=== PATIENT | female | born 1980 | race Caucasian/White ===

== ENCOUNTER 2018-07-14 03:16 | Inpatient (IN) | payer BC ==
[~2018-07-14] VITALS: Ht 170.2 cm; Wt 90.0 kg
[2018-07-14 03:47] VITALS: BP 130/67
[2018-07-14] MEDS ORDERED: D5%-LACTATED RINGERS 1,000 ML IV SCH (04:48)
[2018-07-14] MEDS ORDERED: OXYTOCIN 30U/ 0.9% NaCL 500ML 500 ML IV ONE (04:48)
[2018-07-14] MEDS ORDERED: MISOPROSTOL 200 MCG TABLET ONE (04:52)
[2018-07-14] MEDS ORDERED: OXYTOCIN 30U/ 0.9% NaCL 500ML 500 ML ONE ×2 (04:52→16:07)
[2018-07-14] MEDS ORDERED: LIDOCAINE 1%, 50ML ONE (04:52)
[2018-07-14] MEDS ORDERED: NEWBORN KIT ONE (04:52)
[2018-07-14] MEDS ORDERED: LORA10TA75 PO (04:58)
[2018-07-14] MEDS ORDERED: TERBUTALINE 1 MG/ML, 1ML IVPush PRN (05:00)
[2018-07-14] MEDS ORDERED: ONDANSETRON 2MG/ML, 2ML IVPush PRN (05:00)
[2018-07-14] MEDS ORDERED: FENTANYL PF 100 MCG/2ML IVPush PRN (05:00)
[2018-07-14] MEDS ORDERED: CALCIUM CARBONATE 500 MG TAB.CHEW PO PRN (05:00)
[2018-07-14] MEDS ORDERED: ALUMINUM/MAG/SIMETHICONE 30 ML UDC PO PRN (05:00)
[2018-07-14] MEDS ORDERED: FENTANYL PF 100 MCG/2ML IV PRN (05:00)
[2018-07-14] MEDS ORDERED: FENTANYL PF 100 MCG/2ML ONE (05:10)
[2018-07-14] MEDS: LACTATED RINGERS 1,000 ML IV SCH ×3 (05:16→12:44)
[2018-07-14 05:28] LABS: BASOPHILS # (AUTO) 0.04 x10^3/uL (0-0.1); BASOPHILS % (AUTO) 0 % (0-1); EOSINOPHILS # (AUTO) 0.08 x10^3/uL (0-0.4); EOSINOPHILS % (AUTO) 1 % (1-7); LYMPHOCYTES # (AUTO) 1.66 x10^3/uL (1-3.4); LYMPHOCYTES % (AUTO) 15 % (22-44); MD NO; MEAN CORPUSCULAR HEMOGLOBIN 30.5 pg (27.0-34.8); MEAN CORPUSCULAR HGB CONC 34.8 g/dL (32.4-35.8); MEAN CORPUSCULAR VOLUME 87.6 fL (80-100); MEAN PLATELET VOLUME 8.4 fL (7.4-10.4); MONOCYTES # (AUTO) 0.69 x10^3/uL (0.2-0.8); MONOCYTES % (AUTO) 6 % (2-9); NEUTROPHILS # (AUTO) 8.79 x10^3/uL (1.8-6.8); NEUTROPHILS % (AUTO) 78 % (42-75); PLATELET COUNT 195 x10^3/uL (130-400); RED BLOOD COUNT 3.56 x10^6/uL (3.82-5.3); RED CELL DISTRIBUTION WIDTH 13.6 % (9.6-15.2)
[2018-07-14] MEDS ORDERED: FENTANYL/BUPIV./NS/PF 250 ML EPIDCONT SCH (05:40)
[2018-07-14] MEDS ORDERED: FENTANYL PF 500 MCG, BUPIVACAINE/PF 0.5%, 30ML 62.5 ML in SODIUM CHLORIDE 0.9% 177.5 ML EPIDCONT SCH (06:00)
[2018-07-14] MEDS ORDERED: OXYTOCIN 30U/ 0.9% NaCL 500ML 500 ML IV PRN ×2 (09:04)
[2018-07-14] MEDS ORDERED: METOCLOPRAMIDE 5 MG/ML, 2ML ONE (14:21)
[2018-07-14] MEDS ORDERED: METOCLOPRAMIDE 5 MG/ML, 2ML IVPush ONE (14:30)
[2018-07-14] MEDS: OXYTOCIN 30U/ 0.9% NaCL 500ML 500 ML IV SCH (17:19)
[2018-07-14] MEDS ORDERED: LACTATED RINGERS 1,000 ML IV SCH ×2 (17:19)
[2018-07-14] MEDS ORDERED: OXYTOCIN 30U/ 0.9% NaCL 500ML 500 ML IV SCH (17:19)
[2018-07-14] MEDS ORDERED: CARBOPROST TROMETHAMINE 250 MCG/ML, 1ML IM PRN (17:30)
[2018-07-14] MEDS ORDERED: SIMETHICONE 80 MG CHEW TAB PO PRN (17:30)
[2018-07-14] MEDS ORDERED: OXYcodone/APAP 5/325MG TABLET PO PRN ×3 (17:30)
[2018-07-14] MEDS ORDERED: MISOPROSTOL 200 MCG TABLET PR PRN ×2 (17:30)
[2018-07-14] MEDS ORDERED: MEASLES,MUMPS&RUBELLA VACC/PF 0.5 ML SQ-VACC PRN (17:30)
[2018-07-14] MEDS ORDERED: ACETAMINOPHEN 325 MG TABLET PO PRN ×3 (17:30)
[2018-07-14] MEDS ORDERED: morphine SULFATE 10 MG/ML, 1ML IVPush PRN (17:30)
[2018-07-14] MEDS ORDERED: MEASLES,MUMPS&RUBELLA VACC/PF 0.5 ML SQ PRN (17:30)
[2018-07-14] MEDS ORDERED: DOCUSATE 100 MG CAPSULE PO PRN (17:30)
[2018-07-14] MEDS ORDERED: RHOGAM FROM BLOOD BANK 1 NOTE EA IM/IV ONE (17:30)
[2018-07-14] MEDS ORDERED: DIPH,PERTUSS(ACELL),TET VAC/PF NC IM-VACC PRN ×2 (17:30)
[2018-07-14] MEDS ORDERED: KETOROLAC 30 MG/1 ML IV SCH (17:30)
[2018-07-14] MEDS ORDERED: METHYLERGONOVINE 0.2 MG/ML IM PRN ×2 (17:30)
[2018-07-14] MEDS ORDERED: IBUPROFEN 600 MG TABLET ONE (18:38)
[2018-07-14] MEDS ORDERED: OXYcodone/APAP 5/325MG TABLET ONE (18:39)
[2018-07-14] MEDS: IBUPROFEN 600 MG TABLET PO PRN (18:42)
[2018-07-14 19:25] VITALS: BP 104/68
[2018-07-15] MEDS: IBUPROFEN 600 MG TABLET PO PRN ×4 (00:44→23:14)
[2018-07-15] MEDS: DOCUSATE 100 MG CAPSULE PO PRN ×3 (00:44→23:14)
[2018-07-15 00:45] VITALS: BP 120/68
[2018-07-15 01:16] LABS: BASOPHILS # (AUTO) 0.01 x10^3/uL (0-0.1); BASOPHILS % (AUTO) 0 % (0-1); EOSINOPHILS % (AUTO) 0 % (1-7); LYMPHOCYTES # (AUTO) 1.07 x10^3/uL (1-3.4); LYMPHOCYTES % (AUTO) 8 % (22-44); MD NO; MEAN CORPUSCULAR HEMOGLOBIN 29.4 pg (27.0-34.8); MEAN CORPUSCULAR HGB CONC 33.7 g/dL (32.4-35.8); MEAN CORPUSCULAR VOLUME 87.3 fL (80-100); MEAN PLATELET VOLUME 8.6 fL (7.4-10.4); MONOCYTES # (AUTO) 0.89 x10^3/uL (0.2-0.8); MONOCYTES % (AUTO) 7 % (2-9); NEUTROPHILS # (AUTO) 11.63 x10^3/uL (1.8-6.8); NEUTROPHILS % (AUTO) 86 % (42-75); PLATELET COUNT 196 x10^3/uL (130-400); RED BLOOD COUNT 3.25 x10^6/uL (3.82-5.3); RED CELL DISTRIBUTION WIDTH 13.6 % (9.6-15.2)
[2018-07-15] MEDS: OXYTOCIN 30U/ 0.9% NaCL 500ML 500 ML IV SCH (03:19)
[2018-07-15 04:15] VITALS: BP 104/76
[2018-07-15 07:45] VITALS: BP 96/60
[2018-07-15] MEDS ORDERED: PRENATAL VIT/IRON/FA 1 EACH TABLET PO SCH (09:00)
[2018-07-15] MEDS: PRENATAL VIT/IRON/FA 1 EACH TABLET PO SCH (10:02)
[2018-07-15 12:30] VITALS: BP 107/69
[2018-07-15 20:00] VITALS: BP 109/69
[2018-07-15] MEDS: OXYcodone/APAP 5/325MG TABLET PO PRN (23:33)
[2018-07-16 07:50] VITALS: BP 114/77
[2018-07-16] MEDS ORDERED: OXYC-302 PO (08:17)
[2018-07-16] MEDS ORDERED: IBUP-1222 PO (08:18)
[2018-07-16] MEDS: PRENATAL VIT/IRON/FA 1 EACH TABLET PO SCH (09:14)
[2018-07-16] MEDS: OXYcodone/APAP 5/325MG TABLET PO PRN (09:14)
[2018-07-16] MEDS: IBUPROFEN 600 MG TABLET PO PRN (12:03)
== END 2018-07-16 12:03 | disposition home or self-care (01) | DRG 775 ==
LOC: LDOP 03:16 → LDIP 04:48 → 2NW 19:24
PROVIDERS: ADMIT Obstetrics & Gynecology Gynecology; ATTEND Obstetrics & Gynecology
PROC: 10E0XZZ Delivery of Products of Conception, External Approach (ICD-10-PCS; principal; 2018-07-14)
PROC: 0HQ9XZZ Repair Perineum Skin, External Approach (ICD-10-PCS; 2018-07-14)
PROC: 10907ZC Drainage of Amniotic Fluid, Therapeutic from Products of Conception, Via Natural or Artificial Opening (ICD-10-PCS; 2018-07-14)
PROC: 3E0R3BZ Introduction of Anesthetic Agent into Spinal Canal, Percutaneous Approach (ICD-10-PCS; 2018-07-14)
PROC: 00HU33Z Insertion of Infusion Device into Spinal Canal, Percutaneous Approach (ICD-10-PCS; 2018-07-14)
DX: O24.420 Gestational diabetes mellitus in childbirth, diet controlled (principal); O70.0 First degree perineal laceration during delivery; Z37.0 Single live birth; Z3A.38 38 weeks gestation of pregnancy; O90.81 Anemia of the puerperium; D64.9 Anemia, unspecified
CPT/HCPCS: 36415; 82962; 85025; 86850; 86900; G0378; J2405; J3010; J3490; J2590; J2765; J7050; J7120

== ENCOUNTER 2018-07-18 20:10 | Inpatient (IN) | payer BC ==
[~2018-07-18] VITALS: Ht 170.2 cm; Wt 83.1 kg
[~2018-07-18 20:10] MED LIST: IBUP-1222 PO; LORA10TA75 PO; OXYC-302 PO
[2018-07-18] MEDS ORDERED: METOCLOPRAMIDE 5 MG/ML, 2ML ONE (21:03)
[2018-07-18 21:14] LABS: ALBUMIN 2.6 g/dL (3.4-5.0); ANION GAP 10 mmol/L (5-15); CALCIUM 8.8 mg/dL (8.5-10.1); CHLORIDE 107 mmol/L (98-107)
[2018-07-18 21:17] LABS: ALANINE AMINOTRANSFERASE 57 U/L (12-78); ALKALINE PHOSPHATASE 108 U/L (45-117); BILIRUBIN,TOTAL 0.2 mg/dL (0.2-1.0); CREATININE 0.71 mg/dL (0.55-1.02)
[2018-07-18] MEDS ORDERED: SODIUM CHLORIDE 0.9% 1,000ML IVBOLUS ONE (21:30)
[2018-07-18] MEDS ORDERED: METOCLOPRAMIDE 5 MG/ML, 2ML IVPush ONE (21:30)
[2018-07-18] MEDS ORDERED: DIPHENHYDRAMINE 50 MG/ML, 1ML IVPush ONE (21:30)
[2018-07-18 21:31] LABS: MD YES; MEAN CORPUSCULAR HEMOGLOBIN 30.2 pg (27.0-34.8); MEAN CORPUSCULAR HGB CONC 33.9 g/dL (32.4-35.8); MEAN CORPUSCULAR VOLUME 89.1 fL (80-100); PLATELET COUNT 258 x10^3/uL (130-400); RED BLOOD COUNT 3.75 x10^6/uL (3.82-5.3); RED CELL DISTRIBUTION WIDTH 13.6 % (9.6-15.2)
[2018-07-18 21:35] LABS: LYMPH#(MANUAL) 0.93 x10^3/uL (1-3.4); LYMPHS% (MANUAL) 10 % (22-44); MONOS#(MANUAL) 0.74 x10^3/uL (0.3-2.7); MONOS% (MANUAL) 8 % (2-9); SEG#(MANUAL) 7.63 x10^3/uL (1.8-6.8); SEGS% (MANUAL) 82 % (42-75)
[2018-07-18 21:37] LABS: <PLATELET ESTIMATE> ADEQUATE; <PLT MORPHOLOGY> NORMAL PLT MORPH; ANISOCYTOSIS 1+; POLYCHROMASIA 1+
[2018-07-18 21:57] LABS: CULTURE INDICATED? YES; MICROSCOPIC INDICATED
[2018-07-18] MEDS ORDERED: hydrALAzine 20 MG/ML, 1ML ONE (22:10)
[2018-07-18] MEDS ORDERED: niFEDipine ER 30 MG TABLET.ER PO ONE (22:13)
[2018-07-18] MEDS ORDERED: hydrALAzine 20 MG/ML, 1ML IV ONE (22:30)
[2018-07-18] MEDS ORDERED: DEXAMETHASONE 4 MG/ML, 1ML IVPush ONE (23:05)
[2018-07-18] MEDS ORDERED: DEXAMETHASONE 4 MG/ML, 1ML ONE (23:31)
[2018-07-18] MEDS ORDERED: SODIUM CHLORIDE 0.9% 1,000 ML IV SCH (23:43)
[2018-07-18] MEDS ORDERED: MORPHINE SULFATE 4 MG/ML, 1ML ONE (23:54)
[2018-07-18] MEDS ORDERED: ONDANSETRON ODT 4 MG ONE (23:55)
[2018-07-19] MEDS ORDERED: ONDANSETRON 2MG/ML, 2ML IVPush PRN
[2018-07-19] MEDS ORDERED: ONDANSETRON ODT 4 MG PO PRN
[2018-07-19] MEDS ORDERED: ACETAMINOPHEN 325 MG TABLET PO PRN
[2018-07-19] MEDS ORDERED: GADOBUTROL 10 MMOL/10 ML PFS ONE (00:04)
[2018-07-19] MEDS: morphine SULFATE 10 MG/ML, 1ML IVPush PRN ×4 (00:24→14:48)
[2018-07-19] MEDS ORDERED: niFEDipine ER 30 MG TABLET.ER PO ONE (00:30)
[2018-07-19 02:33] VITALS: BP 151/78
[2018-07-19 04:00] VITALS: BP 127/71
[2018-07-19] MEDS: BUTALB/APAP/CAFFEINE 50MG/325MG/40MG PO PRN (08:14)
[2018-07-19] MEDS ORDERED: PANTOPRAZOLE 40 MG IV IVPush SCH (10:00)
[2018-07-19] MEDS: DOCUSATE 100 MG CAPSULE PO SCH ×2 (10:03→21:24)
[2018-07-19] MEDS: DEXAMETHASONE 4 MG/ML, 1ML IVPush SCH ×3 (10:03→21:24)
[2018-07-19] MEDS ORDERED: MORPHINE SULFATE 4 MG/ML, 1ML ONE (10:42)
[2018-07-19 12:31] VITALS: BP 141/86
[2018-07-19 21:01] VITALS: BP 116/77
[2018-07-20] MEDS: BUTALB/APAP/CAFFEINE 50MG/325MG/40MG PO PRN (00:17)
[2018-07-20 01:03] VITALS: BP 157/88
[2018-07-20] MEDS: DEXAMETHASONE 4 MG/ML, 1ML IVPush SCH ×3 (03:32→15:30)
[2018-07-20] MEDS ORDERED: GADOBUTROL 10 MMOL/10 ML PFS ONE (07:50)
[2018-07-20] MEDS ORDERED: FUROSEMIDE 20 MG/2 ML ONE (08:31)
[2018-07-20] MEDS: DOCUSATE 100 MG CAPSULE PO SCH ×2 (08:58→19:53)
[2018-07-20 09:10] LABS: PLATELET (PFA) 324 x10^3/uL (130-400)
[2018-07-20 09:11] VITALS: BP 164/83
[2018-07-20 09:12] LABS: INTERNATIONAL NORMALIZED RATIO 0.94 (0.93-1.1); PARTIAL THROMBOPLASTIN TIME 22 Seconds (25-31); PROTHROMBIN TIME 9.8 Seconds (9.6-11.5)
[2018-07-20] MEDS ORDERED: LIDOCAINE-MPF 2% ,5ML ONE (09:32)
[2018-07-20] MEDS ORDERED: SUFentanil 50 MCG/ML, 1ML ONE (09:32)
[2018-07-20] MEDS ORDERED: MIDAZOLAM 1 MG/ML, 2ML ONE (09:32)
[2018-07-20] MEDS ORDERED: ROCURONIUM 10MG/ML,5ML ONE ×2 (09:33→11:20)
[2018-07-20] MEDS ORDERED: PROPOFOL 10 MG/ML, 20ML ONE (09:33)
[2018-07-20] MEDS ORDERED: SODIUM CHLORIDE 0.9% PF 10ML ONE (09:36)
[2018-07-20] MEDS ORDERED: DEXAMETHASONE 4 MG/ML, 1ML ONE ×3 (09:36)
[2018-07-20] MEDS ORDERED: CEFUROXIME 1.5 GM ONE (09:39)
[2018-07-20] MEDS: PANTOPRAZOLE 40 MG IV IVPush SCH (09:41)
[2018-07-20] MEDS ORDERED: NEOSPORIN OINT, 15GM ONE (09:46)
[2018-07-20] MEDS ORDERED: THROMBIN 20,000 UNIT VIAL TP ONE (09:46)
[2018-07-20] MEDS ORDERED: BACITRACIN 50,000 UNIT ONE (09:46)
[2018-07-20] MEDS ORDERED: BUPIVACAINE/PF-EPI 0.5% 1:200K ONE (09:46)
[2018-07-20] MEDS ORDERED: ONDANSETRON 2MG/ML, 2ML IV PRN ×2 (10:00→16:30)
[2018-07-20] MEDS ORDERED: HALOPERIDOL 5 MG/ML IV PRN (10:00)
[2018-07-20] MEDS ORDERED: OXYcodone 5 MG/5 ML ORAL.SOL UDC PO PRN (10:00)
[2018-07-20] MEDS ORDERED: hydrALAzine 20 MG/ML, 1ML IV PRN ×3 (10:00→18:00)
[2018-07-20] MEDS ORDERED: ACETAMINOPHEN 325 MG TABLET PO PRN ×3 (10:00→16:30)
[2018-07-20] MEDS ORDERED: LABETALOL 5MG/ML, 20ML IV PRN (10:00)
[2018-07-20] MEDS ORDERED: HYDROmorphone 1 MG/ML, 1ML IV PRN (10:00)
[2018-07-20] MEDS ORDERED: MEPERIDINE/PF 25MG/0.5ML IVPush PRN (10:00)
[2018-07-20] MEDS ORDERED: NEOSTIGMINE 1 MG/ML, 10ML ONE (10:28)
[2018-07-20] MEDS ORDERED: BUPIVACAINE/PF-EPI 0.5% 1:200K IM ONE (11:20)
[2018-07-20] MEDS ORDERED: LABETALOL 5MG/ML, 20ML ONE (11:36)
[2018-07-20] MEDS ORDERED: ONDANSETRON 2MG/ML, 2ML ONE ×2 (12:56)
[2018-07-20] MEDS ORDERED: GLYCOPYRROLATE 0.4 MG/2 ML, 2ML ONE (14:05)
[2018-07-20] MEDS ORDERED: FENTANYL PF 100 MCG/2ML ONE ×2 (14:15→14:38)
[2018-07-20] MEDS ORDERED: OXYcodone 5 MG/5 ML ORAL.SOL UDC ONE (14:39)
[2018-07-20] MEDS: FENTANYL PF 100 MCG/2ML IV PRN ×3 (14:42→15:05)
[2018-07-20] MEDS ORDERED: NS + 20MEQ KCL 1,000 ML IV SCH (16:30)
[2018-07-20] MEDS ORDERED: VANCOMYCIN PER PHARMACY MC SCH (16:30)
[2018-07-20] MEDS ORDERED: MAGNESIUM HYDROXIDE 8%, 30ML UDC PO PRN (16:30)
[2018-07-20] MEDS ORDERED: ACETAMINOPHEN 650 MG SUPP PR PRN ×2 (16:30)
[2018-07-20] MEDS ORDERED: LABETALOL 250 MG in DEXTROSE 5% 200 ML IV PRN (16:30)
[2018-07-20] MEDS ORDERED: BISACODYL 10 MG SUPP PR PRN (16:30)
[2018-07-20] MEDS ORDERED: DEXAMETHASONE 4 MG TABLET PO SCH (16:30)
[2018-07-20] MEDS: HYDROmorphone 2 MG/ML, 1ML IV PRN ×2 (16:32→19:52)
[2018-07-20] MEDS: DEXAMETHASONE 4 MG/ML, 1ML IV SCH ×2 (16:45→22:36)
[2018-07-20] MEDS ORDERED: PHARMACOKINETIC CONSULTATION MC ONE (17:00)
[2018-07-20] MEDS ORDERED: PHARMACOKINETIC MONITORING MC PRN (17:00)
[2018-07-20] MEDS: OXYcodone/APAP 5/325MG TABLET PO PRN ×2 (17:56→22:31)
[2018-07-21] MEDS: VANCOMYCIN 1,400 MG in SODIUM CHLORIDE 0.9% 250 ML IV SCH ×2 (00:36→13:51)
[2018-07-21] MEDS: OXYcodone/APAP 5/325MG TABLET PO PRN ×5 (03:09→23:52)
[2018-07-21] MEDS: DEXAMETHASONE 4 MG/ML, 1ML IV SCH ×2 (04:44→19:55)
[2018-07-21 05:08] LABS: ALANINE AMINOTRANSFERASE 30 U/L (12-78); ALBUMIN 2.3 g/dL (3.4-5.0); ANION GAP 11 mmol/L (5-15); CALCIUM 7.7 mg/dL (8.5-10.1); CHLORIDE 109 mmol/L (98-107); CREATININE 0.56 mg/dL (0.55-1.02)
[2018-07-21 05:10] LABS: ALKALINE PHOSPHATASE 79 U/L (45-117); BILIRUBIN,TOTAL 0.2 mg/dL (0.2-1.0); TOTAL PROTEIN 5.7 g/dL (6.4-8.2)
[2018-07-21 05:33] LABS: BASOPHILS # (AUTO) 0.01 x10^3/uL (0-0.1); BASOPHILS % (AUTO) 0 % (0-1); EOSINOPHILS # (AUTO) 0.02 x10^3/uL (0-0.4); EOSINOPHILS % (AUTO) 0 % (1-7); LYMPHOCYTES # (AUTO) 1.71 x10^3/uL (1-3.4); LYMPHOCYTES % (AUTO) 15 % (22-44); MD NO; MEAN CORPUSCULAR HEMOGLOBIN 29.1 pg (27.0-34.8); MEAN CORPUSCULAR HGB CONC 33.1 g/dL (32.4-35.8); MEAN CORPUSCULAR VOLUME 88.1 fL (80-100); MEAN PLATELET VOLUME 7.5 fL (7.4-10.4); MONOCYTES % (AUTO) 6 % (2-9); NEUTROPHILS % (AUTO) 79 % (42-75); PLATELET COUNT 271 x10^3/uL (130-400); RED BLOOD COUNT 3.14 x10^6/uL (3.82-5.3); RED CELL DISTRIBUTION WIDTH 14.1 % (9.6-15.2)
[2018-07-21] MEDS: SENNA/DOCUSATE TABLET PO SCH (09:40)
[2018-07-21] MEDS: DOCUSATE 100 MG CAPSULE PO SCH ×2 (09:40→19:55)
[2018-07-21] MEDS: PANTOPRAZOLE 40 MG IV IVPush SCH (09:40)
[2018-07-21] MEDS: MUPIROCIN OINT 2%, 22GM TP SCH ×2 (10:35→19:56)
[2018-07-21] MEDS: HYDROmorphone 2 MG/ML, 1ML IV PRN (12:48)
[2018-07-21] MEDS ORDERED: GADOBUTROL 7.5 MMOL/7.5 ML PFS ONE (13:12)
[2018-07-21 19:43] VITALS: BP 139/85
[2018-07-21 23:57] VITALS: BP 118/78
[2018-07-22] MEDS: VANCOMYCIN 1,400 MG in SODIUM CHLORIDE 0.9% 250 ML IV SCH ×2 (02:28→14:23)
[2018-07-22] MEDS: OXYcodone/APAP 5/325MG TABLET PO PRN ×5 (04:08→20:48)
[2018-07-22 04:28] VITALS: BP 130/84
[2018-07-22 05:34] LABS: CHLORIDE 107 mmol/L (98-107)
[2018-07-22 05:39] LABS: ANION GAP 10 mmol/L (5-15); BASOPHILS # (AUTO) 0.03 x10^3/uL (0-0.1); BASOPHILS % (AUTO) 0 % (0-1); CREATININE 0.54 mg/dL (0.55-1.02); EOSINOPHILS # (AUTO) 0.06 x10^3/uL (0-0.4); EOSINOPHILS % (AUTO) 1 % (1-7); LYMPHOCYTES % (AUTO) 19 % (22-44); MD NO; MEAN CORPUSCULAR HEMOGLOBIN 29.7 pg (27.0-34.8); MEAN CORPUSCULAR HGB CONC 33.4 g/dL (32.4-35.8); MEAN CORPUSCULAR VOLUME 89.1 fL (80-100); MEAN PLATELET VOLUME 7.7 fL (7.4-10.4); MONOCYTES # (AUTO) 0.57 x10^3/uL (0.2-0.8); MONOCYTES % (AUTO) 6 % (2-9); NEUTROPHILS # (AUTO) 6.85 x10^3/uL (1.8-6.8); NEUTROPHILS % (AUTO) 74 % (42-75); PLATELET COUNT 234 x10^3/uL (130-400); RED BLOOD COUNT 3.23 x10^6/uL (3.82-5.3); RED CELL DISTRIBUTION WIDTH 14.2 % (9.6-15.2)
[2018-07-22 07:39] VITALS: BP_SYST 125; BP_SYST 89; BP_DIAS 66; BP_DIAS 82
[2018-07-22] MEDS: DOCUSATE 100 MG CAPSULE PO SCH ×2 (09:07→20:24)
[2018-07-22] MEDS: PANTOPRAZOLE 40 MG IV IVPush SCH (09:07)
[2018-07-22] MEDS: MUPIROCIN OINT 2%, 22GM TP SCH ×2 (09:07→20:24)
[2018-07-22] MEDS: DEXAMETHASONE 4 MG/ML, 1ML IV SCH ×2 (09:07→20:24)
[2018-07-22] MEDS: SENNA/DOCUSATE TABLET PO SCH (09:07)
[2018-07-22 12:42] VITALS: BP 132/80
[2018-07-22 19:49] VITALS: BP 114/60
[2018-07-23 00:14] VITALS: BP 125/79
[2018-07-23] MEDS: OXYcodone/APAP 5/325MG TABLET PO PRN ×5 (00:21→14:51)
[2018-07-23] MEDS: VANCOMYCIN 1,400 MG in SODIUM CHLORIDE 0.9% 250 ML IV SCH ×2 (02:31→14:53)
[2018-07-23 04:17] VITALS: BP 119/77
[2018-07-23] MEDS ORDERED: PANTOPROZOLE 40MG TABLET PO SCH (07:30)
[2018-07-23] MEDS: DEXAMETHASONE 4 MG/ML, 1ML IV SCH (09:00)
[2018-07-23] MEDS ORDERED: DEXAMETHASONE 4 MG/ML, 1ML IV SCH (09:00)
[2018-07-23 09:16] VITALS: BP 115/81
[2018-07-23] MEDS: SENNA/DOCUSATE TABLET PO SCH (09:47)
[2018-07-23] MEDS: MUPIROCIN OINT 2%, 22GM TP SCH (09:47)
[2018-07-23] MEDS: DOCUSATE 100 MG CAPSULE PO SCH (09:47)
[2018-07-23 14:49] VITALS: BP 137/78
[2018-07-23] MEDS ORDERED: PANT40TA5 PO (15:33)
[2018-07-23] MEDS ORDERED: OXYC1TAB7 PO (15:33)
[2018-07-23] MEDS ORDERED: DEXA1TAB5 PO (15:33)
[2018-07-23 17:33] VITALS: BP 121/65
[2018-07-25] MEDS ORDERED: DEXAMETHASONE 4 MG/ML, 1ML IV SCH (09:00)
== END 2018-07-23 17:53 | disposition home or self-care (01) | DRG 769 ==
LOC: ED 23:03 → EDIP 23:31 → CCU 07-19 01:50 → 3NW 07-19 11:14 → CCU 07-20 15:45 → 4NOR 07-21 10:44
PROVIDERS: ADMIT Hospitalist; ATTEND Hospitalist
PROC: 0T9B70Z Drainage of Bladder with Drainage Device, Via Natural or Artificial Opening (ICD-10-PCS; principal; 2018-07-18)
PROC: 00B70ZZ Excision of Cerebral Hemisphere, Open Approach (ICD-10-PCS; 2018-07-20)
DX: O9A Maternal malignant neoplasms, traumatic injuries and abuse classifiable elsewhere but complicating pregnancy, childbirth and the puerperium (principal); G93.6 Cerebral edema; C71.1 Malignant neoplasm of frontal lobe; O99.355 Diseases of the nervous system complicating the puerperium; D64.9 Anemia, unspecified; N80.9 Endometriosis, unspecified; O24.430 Gestational diabetes mellitus in the puerperium, diet controlled; O90.81 Anemia of the puerperium; O13.5 Gestational [pregnancy-induced] hypertension without significant proteinuria, complicating the puerperium
CPT/HCPCS: 36415; 70450; 70552; 70553; 80047; 80048; 80053; 81001; 83735; 84100; 85014; 85025; 85049; 85576; 85610; 85730; 86850; 86900; 87081; 87086; 88307; 88331; 88341; 88342; 96374; 96375; A9585; C1713; G0378; J0697; J1100; J1170; J2250; J2405; J2704; J2710; J3010; J3370; J3480; J3490; Q0162; 92523-GN; A4648; C9113; G0461; J0360; J1200; J1940; J2270; J2765; J7030; J7050